=== PATIENT | female | born 1970 | race Caucasian/White ===

== ENCOUNTER 2019-07-11 23:26 | Emergency (ER) | payer OTHER ==
[~2019-07-11] VITALS: Ht 162.6 cm; Wt 72.6 kg
--- OUTSIDE RECORDS SUMMARY | 2019-07-11 23:28 | XMS REPORT | Continuity of Care Document ---
Author Author [facility] Organization [facility] Address Unknown Phone Unavailable Care Team Providers Care Senior Informatica Developer Name Role Phone MD LIZBETH WALLACE PCP Allergies, Adverse Reactions, Alerts Allergen Type Severity Reaction Last Updated Verified Status propoxyphene napsylate Allergy Unknown April 01, 2019 Yes Active Penicillin Allergy Unknown April 01, 2019 Yes Active Codeine Allergy Unknown April 01, 2019 Yes Active Cephalexin Allergy Unknown April 01, 2019 Yes Active Medications Medication Status Dose Units Route Sig Qty Days Start Date End Date Instructions Amitriptyline Hcl Active 100 mg Bedtime Aspirin Active 81 mg Daily Docusate Sodium Active 100 mg Twice A Day 14 April 01, 2019 8:10pm Estradiol Active 1 mg Daily Take 1 tablet by mouth once daily. Furosemide Active 20 mg Daily Glyburide Active 5 mg Twice A Day Take 1 tablet by mouth every day. Iron Active 5000 mg Levothyroxine Sodium Active 50 Daily Take 1 tablet by mouth once daily. Metformin Hcl Active 1000 mg Bid With Meals Take 1 tablet by mouth twice daily with meals. Methocarbamol Active 500 mg Three Times A Day as needed for Muscle Spasm January 04, 2018 5:25pm Metoprolol Tartrate Active 50 mg Ondansetron Hcl Active 8 mg Every 8 Hours as needed for Nausea 6 December 12, 2018 6:19pm Ramipril Active 5 mg Ranitidine Hcl Active 300 mg Daily Sitagliptin Phosphate Active 100 mg Daily Problems Active Problems Medical Problem Onset Date Status Dental abscess Active Shoulder pain Active Pharyngitis Active Chronic shoulder pain Active Hyperglycemia Active Torticollis, acute Active Acute flank pain Active Nausea alone Active Diarrhea Active Flatulence Active Cellulitis Active Paresthesia of right upper extremity Active Radiculopathy of arm Active Fall Active Contusion of knee, left Active Tinea corporis Active UTI (urinary tract infection) Active Left against medical advice Active Gassiness Active Abdominal pain Active Inactive/Resolved Problems Medical Problem Onset Date Status Bartholin gland cyst Resolved Acute upper respiratory infection of multiple sites Resolved Allergic rhinitis Resolved Encounter for medical screening examination Resolved Stuffy and runny nose Resolved Cough Resolved Sore throat Resolved Neck muscle spasm Resolved Neck pain Resolved Bronchitis Resolved Dental caries Resolved Neck pain Resolved Fat inflammation Resolved Neck pain on right side Resolved Muscle spasms of neck Resolved Constipation Resolved Chest pain of uncertain etiology Resolved Pancytopenia Resolved Abrasion of skin Resolved Contusion of rib on left side Resolved Hyperglycemia without ketosis Resolved Adynamic ileus Resolved Dental caries Resolved Toothache Resolved Folliculitis Resolved Viral gastroenteritis Resolved Dehydration Resolved Headache Resolved Pain, dental Resolved Anemia Resolved Diabetes Resolved Ureteritis Resolved Urinary tract infection Resolved Dehydration Resolved Procedures Procedure Date Performed Status X-ray of abdomen, single view April 01, 2019 completed Relevant Diagnostic Tests and/or Laboratory Data Laboratory Results Test Date/Time Result Interpretation Reference Range Result Comment Performing Site Urine Source April 01, 2019 6:15pm URINE [facility], [address] [place] [id number] Urine Color April 01, 2019 6:15pm Yellow Yel-Anailsa * [facility], [address] [place] [address] Urine Appearance April 01, 2019 6:15pm Clear Clear * [facility], [address] [place] [id number] Urine pH April 01, 2019 6:15pm 5.0 5.0-8.0 [facility], [address] [place] [address] Urine Specific [place] April 01, 2019 6:15pm 1.012 1.005-1.030 [facility], [address] [place] [address] Urine Protein April 01, 2019 6:15pm 10 mg/dL Negative * [facility], [address] [place] [id number] Urine Glucose (UA) April 01, 2019 6:15pm 30 mg/dL Negative * [facility], [address] [place] [address] Urine Ketones April 01, 2019 6:15pm Negative mg/dL Negative * [facility], [address] [place] [address] [facility] [place] [address] Urine Occult Blood April 01, 2019 6:15pm Negative Negative * [facility], [address] [place] [address] [facility] [place] [address] Urine Nitrite April 01, 2019 6:15pm Negative Negative [facility], [address] [place] [address] [place] [address] Urine Bilirubin April 01, 2019 6:15pm Negative mg/dL Negative [facility], [address] [place] [address] [place] [address] Urine Urobilinogen April 01, 2019 6:15pm Negative mg/dL 0.0-1.0 [facility], [address] [place] [address] [facility] [place] [address] Urine Leukocyte Esterase April 01, 2019 6:15pm Negative {Yu}/uL Negative [facility], [address] [place] [address] [place] [facility] [place] [address] Microscopic Urinalysis (T) April 01, 2019 6:15pm ----- [facility], [address] [place] [address] [place] [address] Urine RBC April 01, 2019 6:15pm None Seen /[HPF] 0-2 [facility], [address] [place] [address] [place] [facility] [place] [address] Urine WBC April 01, 2019 6:15pm 0-5 /[HPF] 0-5 [facility], [address] [place] [address] [place] [facility] [place] [address] Urine Epithelial Cells April 01, 2019 6:15pm Many /[HPF] Few [facility], [address] [place] [address] [place] [address] Urine Crystals April 01, 2019 6:15pm None Seen /[HPF] None * [facility], [address] [place] [address] [place] [address] Urine Bacteria April 01, 2019 6:15pm Frequent /[HPF] None [facility], [address] [place] [address] [place] [facility] [place] [address] Urine Casts April 01, 2019 6:15pm None Seen /[LPF] None * [facility], [address] [place] [address] [place] [facility] [place] [address] Urine Yeast April 01, 2019 6:15pm None Seen /[HPF] None [facility], [address] [place] [address] [place] [address] Urinalysis Comment April 01, 2019 6:15pm * * Ref Range=* Clinical evaluation required. [facility], [facility] [place] [address] Urine Culture Indicated April 01, 2019 6:15pm To follow [facility], [address] [place] [id number] Diagnostic Imaging Reports Report Dictated Date/Time Dictated By Status Abdomen X-Ray April 01, 2019 7:32pm JAZLYN CAGLE MD completed AP supine abdomen. - 04/01/2019, at 1928 hrs. INDICATION: Right-sided abdominal pain. COMPARISON: None available. FINDINGS: A non-specific bowel gas pattern is seen. I do not see evidence of obstruction or free air. No suspicious masses or calcifications are visualized. The osseous structures are unremarkable for age. Cholecystectomy clips are present in the right upper quadrant of the abdomen. IMPRESSION: No active disease. Dictated By: JAZLYN CAGLE MD Date Dictated: 04/01/191931 Signed by: JAZLYN CAGLE MD Date Signed: 04/01/191932 Health Concerns Health Concerns may be documented in an alternate section. Advance Directives Advance Directive Response Recorded Date/Time Does the Patient have an Advance Directive? No April 01, 2019 6:03pm Chief Complaint and Reason for Visit Chief Complaint Abdominal Pain Reason for Visit [id number] Encounters Encounter Location(s) Arrival/Admit Date Discharge/Depart Date Provider(s) Departed Emergency Room [facility] April 01, 2019 5:47pm April 01, 2019 8:12pm KWASI MOROCHO MD Recent Diagnosis Onset Date Abdominal pain Assessments Diagnosis Onset Date Resolution Status Abdominal pain Functional Status Observation Response Date Recorded Onset Within the Last 7 Days No Problem Identified April 01, 2019 6:03pm Goals Goals may be documented in an alternate section. Immunizations No Immunization Information Available Mental Status No Mental Status Information Available Medical Equipment No Medical Equipment Information available Insurance Providers Guarantor [facility] EdWilliam malina Address [address] [address] Contact Info. Home Phone: Payer Policy Id Coverage Id Subscriber's Name Subscriber Id Effective Date Expiration Date [employer] Amos Chris [id number] Emeli Palafox [id number] 2011 Plan of Treatment 1. The examination and treatment that you have received has been on an emergency basis only and is not intended as an effort to provide complete medical care. It is impossible to recognize and treat all elements of an illness or injury in a single ER visit. 2. Thank you for allowing us to provide emergent medical care to you or your family member. We consider it a privilege to have served you during your illness or injury. 3. If you have received a prescription, please fill it TODAY and follow the instructions carefully. 4. Return to the ER for worsening symptoms. 5. Follow up with your family doctor. Future Tests Future scheduled test information is unavailable Pending Tests Test Name Date ordered Urine Culture April 01, 2019 6:15pm Future Visits Future appointment information is unavailable Referrals to Other Providers Reason for Referral Referral Start Date Provider Provider Contact Information Provider Address LIZBETH WALLACE MD Work Phone: [address] [place] [address] Future Procedures Future procedure information is unavailable Future Medications Future medication information is unavailable Patient Instructions Severe Abdominal Pain, Adult (DC) Gas and Bloating Social History Smoking Status Status Date of Observation Ex-smoker (finding) April 01, 2019 6:03pm Observation Status Observation Response Date of Response Hx Tobacco Use No April 01, 2019 6:03pm Assigned Sex Female Vital Signs Vital Reading Result Reference Range Collection Date/Time Body Temperature 98.2 [degF] (97.6 - 99.5) April 01, 2019 8:22pm Heart Rate 85 /min (60 - 100) April 01, 2019 8:12pm Heart Rate 85 /min April 01, 2019 8:22pm Respiratory rate 16 /min (12 - 24) April 01, 2019 8:12pm Respiratory rate 16 /min April 01, 2019 8:22pm BP Systolic 116 mm[Hg] (100 - 140) April 01, 2019 8:12pm BP Systolic 116 mm[Hg] April 01, 2019 8:22pm BP Diastolic 76 mm[Hg] (60 - 90) April 01, 2019 8:12pm BP Diastolic 76 mm[Hg] April 01, 2019 8:22pm Weight 160 [lb_av] April 01, 2019 6:00pm BMI (Body Mass Index) 27.5 kg/m2 April 01, 2019 6:00pm
--- OUTSIDE RECORDS SUMMARY | 2019-07-11 23:28 | XMS REPORT ---
[facility] Address Unknown Phone Unavailable Care Team Providers Care Clinical Dental Technician Name Role Phone YASMANI GOMEZ Unavailable Unavailable Payers Payer Name Policy Type Policy Number Effective Date Expiration Date Problems This patient has no known problems. Allergies, Adverse Reactions, Alerts Allergy Name Allergy Type Status Severity Reaction(s) Onset Date Inactive Date Treating Clinician Comments Penicillins DA Active NV 2018-11-30 00:00:00 codeine DA Active NV 2018-11-30 00:00:00 cephalexin DA Active 2018-11-30 00:00:00 Penicillins DA Active NV 2018-02-10 00:00:00 codeine DA Active NV 2018-02-10 00:00:00 Medications This patient has no known medications. Results Test Description Test Time Test Comments Text Results Atomic Results Result Comments ALPHAFETOPROTEIN,S 2019-06-08 05:07:00 AFP, SERUM TUMOR MARKER (test code=ALPFETTM) 3.3 ng/mL 0.0-8.3 [facility] Electrochemiluminescence Immunoassay (ECLIA) . Values obtained with different assay methods or kits cannot be used interchangeably. Results cannot be interpreted as absolute evidence of the presence or absence of malignant disease. . This test is not interpretable in females. Performed at: - [address] [id number] [employer] Design Drafter: Rashaun Estrada MD, Phone: [phone] [id number] 20:15:00* Test Item Value Reference Range Comments SODIUM (test code=NA) 143 MMOL/L 137-145 K+ (test code=KSERUM) 2.7 MMOL/L 3.5-5.1 PLEASE NOTE NEW REFERENCE RANGE(S) IN EFFECT EFFECTIVE 12/20/2009 - 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 ([employer] 5600) CHLORIDE (test code=CL) 99 MMOL/L 98-107 CO2 (test code=CO2) 33 MMOL/L 22-30 BUN (test code=BUN) 8 MG/DL 7-17 CREA (test code=CREA) 0.8 MG/DL 0.7-1.2 GLUCOSE (test code=GLUCOSE) 247 MG/DL 70-99 Fasting glucose normal <100 MG/DL- [employer] recommendation CALCIUM (test code=CABLOOD) 9.0 MG/DL 8.4-10.2 TOTPROT (test code=TOTPROT) 7.6 G/DL 6.3-8.2 ALBUMIN (test code=ALBSERUM) 4.4 G/DL 3.5-5.0 BILITOT (test code=BILITOT) 0.9 MG/DL 0.2-1.3 AST (test code=AST) 52 U/L 15-46 PHOSALK (test code=PHOSALK) 142 U/L 38-126 ALT (test code=ALT) 37 U/L 13-69 GFR (test code=GFR) 81 mL/min/1.73m2 A GFR of >90 mL/min/1.73m2 is considered normal. RESULTS VERIFIED.C'd TO LCasie BROWN/20:10/[id number] 20:15:00* Test Item Value Reference Range Comments FERRITIN (test code=FERR) 147 NG/ML 11-264 IRON/ BINDING CAPACITY/ %[id number] 20:15:00* Test Item Value Reference Range Comments IRON % SATURATION (test code=%SAT) 27 % 20-45 IRON (test code=FE) 83 UG/DL 37-170 If Iron is <6 the % saturation is incalculable. IBC (test code=IBC) 305 265-497 VITAMIN [id number] 17:58:00* Test Item Value Reference Range Comments B12 (test code=B12) 498 pg/mL 239-931 [id number] 16:18:00* Test Item Value Reference Range Comments WBC (test code=WBC) 3.6 K/UL 3.5-10.9 RBC (test code=RBC) 4.25 M/UL 4.0-5.0 HGB (test code=HGB) 11.9 G/DL 11.5-15.5 HCT (test code=HCT) 37.9 % 34-46 MCV (test code=MCV) 89.2 FL 80-98 MCH (test code=MCH) 28.0 PG 28-32 MCHC (test code=MCHC) 31.4 G/DL 32.5-36.5 RDW (test code=RDW) 14.9 % 11.5-14.5 PLT (test code=PLT) 87 K/UL 150-450 MPV (test code=MPV) 10.4 FL 7.4-10.4 MANDIFF (test code=MANDIFF) NO SCAN (test code=SCAN) NO NEUT% (test code=NEUT%) 63.7 % 40-75 LYMPH% (test code=LYMPH%) 26.8 % 24-44 MONO% (test code=MONO%) 5.6 % 0-13 EOS% (test code=EOS%) 2.5 % 0-4 BASO % (test code=BASO%) 0.8 % 0-2 IG (test code=IG) 0 % 0-1 IG% (test code=IG%) 0.6 % 0-1 IG%=Metamyelocytes, Myelocytes, and Promyelocytes. (Immature neutrophils not including "bands".) > 3% IG indicates risk of sepsis NRBC% (test code=NRBC%) 0 /100 WBC ABS NEUT (test code=NEUT) 2.3 K/UL 1.2-7.2 RAPID STREP A [id number] 23:58:00* Test Item Value Reference Range Comments STREP A ANTIGEN (BEAKER) (test nacw=044) Negative Negative RAPID INFLUENZA A&B [id number] 22:48:00* Test Item Value Reference Range Comments RAPID INFLUENZA A AG (BEAKER) (test zqws=6486) Negative Negative, Inconclusive RAPID INFLUENZA B AG (BEAKER) (test yyss=8282) Negative Negative, Inconclusive RAD, CHEST, 1 VIEW, NON [id number] 19:38:00Reason for exam:->SORE THROATReason for exam:->COUGHIs the patient ?->NoShould this be performed at the bedside?->YesFINAL REPORT TECHNIQUE: Frontal view of the chest. INDICATION: SORE THROATCOUGH. COMPARISON: None. FINDINGS: LINES/TUBES: None. LUNGS: The lungs are well inflated and clear. No consolidation or pulmonary edema. PLEURA: No pneumothorax or significant pleural effusion. HEART AND MEDIASTINUM: The cardiomediastinal silhouette is within normal limits. SOFT TISSUES AND BONES: Surgical clips in the right upper quadrant. IMPRESSION: No acute cardiopulmonary abnormalities. Signed: Jack De La Garza MDReport Verified Date/Time: 05/04/2019 19:38:36 Reading Location: [address] Consult Reading Room OLOGY [id number] 17:47:00TISSUE CONSULTATION REPORTBAPTBAYLOR SCOTT & [facility] – DALLASDEPARTMENT OF PATHOLOGYP.O[address] [address] [facility] HOSPITALMELISSA FISCHER M.D.ROBERT L. HUTTON, M.D.CHARLES E. BURNS, M.D. Patient: SAMUEL BECK 1970 48 FRoom:Hosp#: [id number] Ordering Physician: Jose YORK Rec.: 04/25/2019Date of Proc.: 04/25/2019Lab No.: [id number] Clinical History:Pancytope niaFINAL ANATOMIC DIAGNOSIS:A. PERIPHERAL BLOOD: PANCYTOPENIAB. BONE MARROW, LEF T POSTERIOR HIP, ASPIRATE AND CORE BIOPSY:NORMOCELLULAR MARROW WITH TRILINEAGE H EMATOPOIESIS;RELATIVELY INCREASED EOSINOPHILS;NO EVIDENCE OF INFILTRATIVE MARROW PROCESS, LYMPHOMA ORLEUKEMIAMILDLY DECREASED IRON (see comment)REPORT COMMENTS: Flow cytometry analysis of this bone marrow aspirate, performed at[facility], is n egative for any evidence of lymphoma or leukemia. Theetiology of this patient's pancytopenia is unclear from this marrowexamination. Diagnostic considerations would include bone marrowsuppression by viral/bacterial infection, medications or toxins.The cellularity of the marrow would suggest patient is recoveringfrom whatever insult was present. Correlation is clinical andcytogenetic findings is required.MICROSCOPIC EXAMINATION:The CBC and peripheral blood indices performed [facility] 04/25/2019 demonstrates pancytopenia. The patient has a lowwhite blood cell count of 2.2 K/uL. The patient is anemic withhemoglobin of 9.4 g/dL and hematocrit of 29.6%. The patient has anormal range MCV of 87.6 fl and a minimally decreased MCH of 27.8pg. The patient has a low platelet count o f 73,000. Examination ofthe peripheral smear confirms the automated CBC finding s. There aresome immature and reactive appearing lymphocytes in the peripheralb lood. No blasts or nucleated red cells are seen on scan. The redcell morphology is unremarkable. The aspirate smears are hemodiluteand devoid of spicules. The aspirate clot preparation contains onlyrare spicules. The core biopsy shows go od marrow sampling. Themarrow has an estimated cellularity of 40-50%, which is normal forthe patient's age. Megakaryocytes appear increased. Based on thecore biopsy, there is a relative erythroid hyperplasia. Eosinophilsappear relatively increased. I do not appreciate any marrowfibrosis or infiltrative marrow proc ess. No atypical lymphoidaggregates are present. Iron stores appear mildly dec reased inPerl's stain preparations of the aspirate clot. John stainedpreparatio ns of the core biopsy fail to demonstrate any significantiron staining and the P erl stain preparation of the aspirate smearis noncontributory due to the absence of spicules.GROSS APPEARANCE:A. The specimen labeled "clot." The 2.5 x 1.3 x 0 .8 cm fragment ofdark red clot is sectioned and submitted entirely in cassettes A1and A2.B. The specimen labeled "core." The 1.6 cm length of dark red andtan c ylindrical core has a consistent diameter of 2 mm. Submitteduncut as B for yelitza potter decalcification.PATHOLOGIST: Stanley Sparks Electronically Signed: ALPHAFETOPROTEIN,[id number] 05:07:00* Test Item Value Reference Range Comments AFP, SERUM TUMOR MARKER (test code=ALPFETTM) 3.3 ng/mL 0.0-8.3 [facility] Electrochemiluminescence Immunoassay (ECLIA) . Values obtained with different assay methods or kits cannot be used interchangeably. Results cannot be interpreted as absolute evidence of the presence or absence of malignant disease. . This test is not interpretable in females. Performed at: [facility] [address] [id number] [employer] Drafter: Rashaun Estrada MD, Phone: [phone] IRON/ BINDING CAPACITY/ %[id number] 12:42:00* Test Item Value Reference Range Comments IRON % SATURATION (test code=%SAT) 18 % 20-45 IRON (test code=FE) 58 UG/DL 37-170 If Iron is <6 the % saturation is incalculable. IBC (test code=IBC) 314 486-497 [id number] 12:42:00* Test Item Value Reference Range Comments FERRITIN (test code=FERR) 109 NG/ML 11-264 [id number] 12:42:00* Test Item Value Reference Range Comments SODIUM (test code=NA) 140 MMOL/L 137-145 K+ (test code=KSERUM) 3.5 MMOL/L 3.5-5.1 PLEASE NOTE NEW REFERENCE RANGE(S) IN EFFECT EFFECTIVE 12/20/2009 - 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 ([employer] 5600) CHLORIDE (test code=CL) 103 MMOL/L 98-107 CO2 (test code=CO2) 28 MMOL/L 22-30 BUN (test code=BUN) 12 MG/DL 7-17 CREA (test code=CREA) 0.8 MG/DL 0.7-1.2 GLUCOSE (test code=GLUCOSE) 130 MG/DL 70-99 Fasting glucose normal <100 MG/DL- [employer] recommendation CALCIUM (test code=CABLOOD) 9.2 MG/DL 8.4-10.2 TOTPROT (test code=TOTPROT) 7.4 G/DL 6.3-8.2 ALBUMIN (test code=ALBSERUM) 4.0 G/DL 3.5-5.0 BILITOT (test code=BILITOT) 0.4 MG/DL 0.2-1.3 AST (test code=AST) 32 U/L 15-46 PHOSALK (test code=PHOSALK) 139 U/L 38-126 ALT (test code=ALT) 27 U/L 13-69 GFR (test code=GFR) 81 mL/min/1.73m2 A GFR of >90 mL/min/1.73m2 is considered normal. VITAMIN [id number] 12:26:00* Test Item Value Reference Range Comments B12 (test code=B12) 429 pg/mL 239-931 [id number] 11:08:00* Test Item Value Reference Range Comments WBC (test code=WBC) 2.2 K/UL 3.5-10.9 RBC (test code=RBC) 3.38 M/UL 4.0-5.0 HGB (test code=HGB) 9.4 G/DL 11.5-15.5 HCT (test code=HCT) 29.6 % 34-46 MCV (test code=MCV) 87.6 FL 80-98 MCH (test code=MCH) 27.8 PG 28-32 MCHC (test code=MCHC) 31.8 G/DL 32.5-36.5 RDW (test code=RDW) 14.8 % 11.5-14.5 PLT (test code=PLT) 73 K/UL 150-450 MPV (test code=MPV) 11.2 FL 7.4-10.4 MANDIFF (test code=MANDIFF) NO SCAN (test code=SCAN) NO NEUT% (test code=NEUT%) 56.5 % 40-75 LYMPH% (test code=LYMPH%) 32.0 % 24-44 MONO% (test code=MONO%) 7.8 % 0-13 EOS% (test code=EOS%) 2.7 % 0-4 BASO % (test code=BASO%) 0.5 % 0-2 IG (test code=IG) 0 % 0-1 IG% (test code=IG%) 0.5 % 0-1 IG%=Metamyelocytes, Myelocytes, and Promyelocytes. (Immature neutrophils not including "bands".) > 3% IG indicates risk of sepsis NRBC% (test code=NRBC%) 0 /100 WBC ABS NEUT (test code=NEUT) 1.2 K/UL 1.2-7.2 IRON/ BINDING CAPACITY/ %[id number] 14:15:00* Test Item Value Reference Range Comments IRON % SATURATION (test code=%SAT) 15 % 20-45 IRON (test code=FE) 57 UG/DL 37-170 If Iron is <6 the % saturation is incalculable. IBC (test code=IBC) 391 059-711 [id number] 14:15:00* Test Item Value Reference Range Comments SODIUM (test code=NA) 141 MMOL/L 137-145 K+ (test code=KSERUM) 3.7 MMOL/L 3.5-5.1 PLEASE NOTE NEW REFERENCE RANGE(S) IN EFFECT EFFECTIVE 12/20/2009 - 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 ([employer] 5600) CHLORIDE (test code=CL) 101 MMOL/L 98-107 CO2 (test code=CO2) 27 MMOL/L 22-30 BUN (test code=BUN) 12 MG/DL 7-17 CREA (test code=CREA) 0.8 MG/DL 0.7-1.2 GLUCOSE (test code=GLUCOSE) 146 MG/DL 70-99 Fasting glucose normal <100 MG/DL- [employer] recommendation CALCIUM (test code=CABLOOD) 10.0 MG/DL 8.4-10.2 TOTPROT (test code=TOTPROT) 8.0 G/DL 6.3-8.2 ALBUMIN (test code=ALBSERUM) 4.5 G/DL 3.5-5.0 BILITOT (test code=BILITOT) 0.6 MG/DL 0.2-1.3 AST (test code=AST) 30 U/L 15-46 PHOSALK (test code=PHOSALK) 134 U/L 38-126 ALT (test code=ALT) 17 U/L 13-69 GFR (test code=GFR) 81 mL/min/1.73m2 A GFR of >90 mL/min/1.73m2 is considered normal. [id number] 14:15:00* Test Item Value Reference Range Comments FERRITIN (test code=FERR) 23 NG/ML 11-264 VITAMIN [id number] 14:14:00* Test Item Value Reference Range Comments B12 (test code=B12) 498 pg/mL 239-931 [id number] 13:21:00* Test Item Value Reference Range Comments WBC (test code=WBC) 2.2 K/UL 3.5-10.9 RBC (test code=RBC) 3.62 M/UL 4.0-5.0 HGB (test code=HGB) 9.9 G/DL 11.5-15.5 HCT (test code=HCT) 31.8 % 34-46 MCV (test code=MCV) 87.8 FL 80-98 MCH (test code=MCH) 27.3 PG 28-32 MCHC (test code=MCHC) 31.1 G/DL 32.5-36.5 RDW (test code=RDW) 14.5 % 11.5-14.5 PLT (test code=PLT) 79 K/UL 150-450 MPV (test code=MPV) 10.6 FL 7.4-10.4 MANDIFF (test code=MANDIFF) NO SCAN (test code=SCAN) NO NEUT% (test code=NEUT%) 56.6 % 40-75 LYMPH% (test code=LYMPH%) 34.4 % 24-44 MONO% (test code=MONO%) 5.4 % 0-13 EOS% (test code=EOS%) 2.7 % 0-4 BASO % (test code=BASO%) 0.9 % 0-2 IG (test code=IG) 0 % 0-1 IG% (test code=IG%) 0.0 % 0-1 IG%=Metamyelocytes, Myelocytes, and Promyelocytes. (Immature neutrophils not including "bands".) > 3% IG indicates risk of sepsis NRBC% (test code=NRBC%) 0 /100 WBC ABS NEUT (test code=NEUT) 1.3 K/UL 1.2-7.2 I-STAT [id number] 13:35:00* Test Item Value Reference Range Comments ISTCREA (test code=ISTCREA) 0.8 MG/DL 0.7-1.5 CT ABD W/CONT PER [id number] 11:28:[address]AGNOST[address] IMAGING REPORTPatient Name: EMELI BECK LDate of Service: [id number]: 48 Sex: F Order #: [id number] Room: OPEDOB: 1970 X-Ray Number: [id number] Record Number: [id number] Hospital Number: [id number] Physician: MARIA L YORKHIROrdering Physician: MILIND YORK abdomen.History: Abdomen pain.Technique: IV and oral contrast enhanced CT axial images of the abdomenwith sagittal and coronal reformatted images were reviewed.Contrast administered for this study per protocol; oral Gastrografin-jpzfi415 mL water with 15 mL Gastrografin and IV Isovue 300-[address] exam was performed using one or more of the following dosereduction techniques: Automated exposure control, adjustment of the MAand/or KV according to patient size or use of iterative reconstructionteeast [facility] regional hospitalique.Comparison: None.Findings:Images of the lower lungs and mediastinum demon strate no specific defects.There is hepatosplenomegaly present with mild fatty i nfiltration of theliver. The liver may be cirrhotic. The spleen measures greater than 15 cm.The other solid large organs of the upper abdomen appear focally nor mal.The gallbladder surgically absent.There is no significant retroperitoneal ad enopathy or fluid collectionsdepicted.The visualized bowel loops appear focally normal..Impression:Hepatosplenomegaly with fatty infiltration of liver. Possible cirrhosis.Correlate clinically.Electronically Signed By: Jocelyn Aguilar, 02/28/2019 11:26 AMLegally authenticated by MANDY Potter 2019-02-28 11:2 6:14US LIMITED ABD [id number] 07:57:00[place] [id number] IMAGING REPORTPatient Name: EMELI BECK LDate of Service: [id number]: 48 Sex: F Order #: [id number] Room: OPEDOB: 1970 X-Ray Number: [id number] Record Number: [id number] Hospital Number: [id number] Physician: Brenda YORK Physician: HAMLET YORK ABD ULTRASOUND 02/28/2019 7:29 AMHistory: splenomegalyComparisons: None Available.The LEFT upper quadrant was imaged.FINDINGS:The spleen is enlarged and measures 17.0 x 6.9 x 4.5 cm.There is no free fluid in the LEFT upper quadrant or abnormal fluidcollection identified.Evaluation of the pancreas, aorta and IVC is limited due to bowel gas.The LEFT kidney is sonographically unremarkable.IMPRESSION:Splenomegaly.E lectronically Signed By: Channing Ortega M.D., 02/28/2019 7:54 AMLegally authent icated by RADHA BENITEZ 2019-02-28 07:54:52TOMOSYNTHESIS + SCREEN [id number] 11:25:[address] [id number] IMAGING REPORTPatient Name: EMELI BECK LDate of Service: [id number]: 48 Sex: F Order #: [id number] Room: OOSDOB: 1970 X-Ray Number: [id number] Record Number: [id number] Hospital Number: [id number] Physician: Brenda YORK Physician: MOISES YORK SCREENING MAMMOGRAM WITH TOMOSYNTHESIS:HISTORY: Screening mammogram.COMPARISON: July 24, 2017.TECHNIQUE: Standard CC and MLO views of each breast were performed.Tomosynthesis images were also reviewed.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 There are a fewbenign-appearing calcifications present within each breast. There are nomammographic abnormalities to suggest malignancy bilat erally.IMPRESSION:BI-RADS 2: Benign findings.Recommendation: 12 month follow-up, or age appropriate screening interval.PLEASE NOTE:1. In up to 10% of patients, cancers are not visible on mammography.2. If a suspicious lump is palpated, biopsy should not be deferredbecause of a negative mammogram.MAMMOGRAPHY AT [facility] IS ACCREDITED BY THEFORMERLY [facility] COLLEGE OF RADIOLOG YElectronically Signed By: Ronnie Pang M.D., 02/22/2019 11:23 [facility] authenticated by MANDY Potter 2019-02-22 11:23:21OCCULT BLOOD, FECES 2019-02-21 14:10:00* Test Item Value Reference Range Comments OCCULT BLOOD FECES (test code=OCCBLFEC) NEGATIVE NEGATIVE LOT# CRD (test code=LOT# CRD) 66089 EXP CRD (test code=EXP CRD) 0222 LOT# DVL (test code=LOT# DVL) 48140 EXP DVL (test code=EXP DVL) 517368 INT QC (test code=INT QC) PASSED CELIAC DISEASE [id number] 11:06:00* Test Item Value Reference Range Comments CELIAC (test code=CELIAC) NEGATIVE TESTING [place] [address] (RESULTS AVAILABLE UNDER SEPARATE COVER) ZINC [id number] 11:05:00* Test Item Value Reference Range Comments ZPPHEME (test code=ZPPHEME) 85 ug/dL 0-36 BIOLOGICAL EXPOSURE INDEX: <100 (1 MONTH EXPOSURE) ENVIRONMENTAL EXPOSURE: 0-36 TESTING PERFORMED AT [place] [address] [address] [address]BHIQALCDCVZDS ACID, [id number] 16:09:00* Test Item Value Reference Range Comments METHYLMALONIC ACID, SERUM (test code=MMAS) 997 nmol/L 0-378 COMMENT (test code=COMMENT) Comment . This test was developed and its performance characteristics determined by [facility]. It has not been cleared or approved by the Food and Drug Administration. Performed at: [address] [id number] [employer] Design Drafter: Jeffery Clark MD, Phone: [phone] HEMOGLOBIN [id number] 15:09:00* Test Item Value Reference Range Comments HEMOGLOBIN A (test code=HGBA) 98.3 % 96.4-98.8 HEMOGLOBIN S (test code=HGBS) 0.0 % >0.0 HEMOGLOBIN C (test code=HGBC) 0.0 % >0.0 HEMOGLOBIN A2 (test code=HGBA2) 1.7 % 1.8-3.2 HEMOGLOBIN F (test code=HGBF) 0.0 % 0.0-2.0 HEMOGLOBIN VARIANT (test code=HGBVAR) 0.0 % >0.0 INTERPRE (test code=INTERPRE) Note: Normal adult hemoglobin present. Low Hgb A2 may indicate an alpha-thalassemia or iron deficiency. Suggest clinical and hematologic correlation. Performed at: [address], [place] [id number] [employer] Drafter: JOSIE Hooks MD, Phone: [phone] FREE K AND L LIGHT CHAIN [id number] 12:35:00* Test Item Value Reference Range Comments FREE KAPPA LT CHAIN (test code=FRKLTCH) 52.6 mg/l 3.3-19.4 FREE LAMBDA LT CHAINS (test code=FRLLTCH) 37.6 mg/l 5.7-26.3 KAPPA/LAMBDA RATIO (test code=K/L RATI) 1.40 0.26-1.65 TESTING PERFORMED AT [address] [address]LCPGBVXJCAP, QUANT 2019-02-16 08:12:00* Test Item Value Reference Range Comments HAPTO (test code=HAPTO) 119 mg/dL 34-200 Performed at: [address] [id number] [employer] Drafter: Jeffery Clark MD, Phone: [phone] ANTI-NUCLEAR AB, [id number] 14:10:00* Test Item Value Reference Range Comments ANTINUCLEAR AB, IFA (test code=ANAIFA) Negative Negative <1:80 Borderline 1:80 Positive >1:80 Performed at: [facility] [address] [id number] [employer] Drafter: Rashaun Estrada MD, Phone: [phone] HOMOCYSTEINE, [id number] 13:09:00* Test Item Value Reference Range Comments HOMOCYSTEINE, PLASMA (test code=HOMO-S) 16.8 umol/L 0.0-15.0 Performed at: [facility] [address] [id number] [employer] Drafter: Rashaun Estrada MD, Phone: [phone] ER SCREEN FOR HIV 16:22:00* Test Item Value Reference Range Comments HIV 1/2 AB (test code=SCRN HIV) NEGATIVE NEGATIVE This test is used for SCREENING purposes only. All reactive results are prelimenary and confirmation results will follow. HEPATITIS C ANTIBODY [id number] 16:22:00* Test Item Value Reference Range Comments SCRN HCV (test code=SCRN HCV) NEGATIVE NEGATIVE Hepatitis C Antibody test is for screening purposes only. All reactives will be confirmed by additional testing. [id number] 14:33:00* Test Item Value Reference Range Comments TRANSFERRIN (test code=TRANSFER) 308 MG/DL 206-381 VITAMIN [id number] 14:33:00* Test Item Value Reference Range Comments B12 (test code=B12) 238 pg/mL 239-931 [id number] 14:33:00* Test Item Value Reference Range Comments FOLATE (test code=FOLATE) 5.5 ng/mL 2.76-20.0 HEPATITIS B SURF [id number] 14:33:00* Test Item Value Reference Range Comments HEPBSAG (test code=HEPBSAG) NEGATIVE NEGATIVE Hepatitis B Surface Antigen is for screening purpose only. All reactives will be sent to reference lab for confirmation. VITAMIN D [id number] 13:45:00* Test Item Value Reference Range Comments VITAMIN D, 25-HYDROXY (test code=VITD,25) 42.8 Vitamin D guideline has been defined by the [place] [employer] and [employer] practice as followed: Deficient: less than 20 ng/mL Insufficient: 21-29 ng/mL Sufficient: 30-100 ng/mL Potential Toxicity: >100ng/mL IRON/ BINDING CAPACITY/ [id number] 13:45:00* Test Item Value Reference Range Comments IRON % SATURATION (test code=%SAT) 14 % 20-45 IRON (test code=FE) 56 UG/DL 37-170 If Iron is <6 the % saturation is incalculable. IBC (test code=IBC) 395 265-497 [id number] 13:45:00* Test Item Value Reference Range Comments FERRITIN (test code=FERR) 21 NG/ML 11-264 [id number] 13:44:00* Test Item Value Reference Range Comments LDH (test code=LDH) 314 U/L 313-618 BILIRUBIN, [id number] 13:44:00* Test Item Value Reference Range Comments BILITOT (test code=BILITOT) 0.7 MG/DL 0.2-1.3 THYROID STIMULATION [id number] 13:44:00* Test Item Value Reference Range Comments TSH (test code=TSH) 4.60 UIU/ML 0.465-4.68 FREE [id number] 13:44:00* Test Item Value Reference Range Comments FT4 (test code=FT4) 1.17 ng/dL 0.78-2.19 DIRECT [id number] 13:26:00* Test Item Value Reference Range Comments IGG (test code=ANTI-IGG) NEGATIVE NEGATIVE IGG-C3D (test code=IGG-C3D) NEGATIVE NEGATIVE RETIC [id number] 11:55:00* Test Item Value Reference Range Comments RETIC (test code=RETIRE) 3.1 % 0.3-1.9 IRF (test code=IRF) 11.0 % 3-15.9 RETHE (test code=RETHE) 27.6 pg 28.2-36.6 UA RFLX MICR CULT IF [id number] 09:15:00* Test Item Value Reference Range Comments UA COLOR (test code=COLU) Yellow Yellow UA APPEARANCE (test code=APPU) Turbid Clear UA GLUCOSE DIPSTICK (test code=DGLUU) Negative Negative UA BILIRUBIN DIPSTICK (test code=BILU) Negative Negative UA KETONE DIPSTICK (test code=KETU) Negative mg/dL Negative UA SPECIFIC GRAVITY (test code=SGU) 1.014 <1.030 UA BLOOD DIPSTICK (test code=SHAHEED) 1+ Negative UA PH DIPSTICK (test code=DAVE) 5.0 5.0-8.0 UA PROTEIN DIPSTICK (test code=PROU) 100 (2+) mg/dL Negative UA UROBILINOGEN DIPSTICK (test code=URO) Negative mg/dL Negative UA NITRITE DIPSTICK (test code=HERNANDEZ) Positive Negative UA LEUKOCYTE ESTERASE DIPSTICK (test code=LEUU) 2+ Negative UA WBC (test code=WBCUR) >100 /HPF <4-5 >10 WBC/HPF=PYURIA PRESENT URINE CULTURE PROCESSED UA RBC (test code=RBCU) 11-20 /HPF <4-5 UA BACTERIA (test code=BACU) None /HPF None-Rare UA SQUAMOUS CELLS (test code=SQU) 0-5 (RARE) /HPF 0-5 (RARE) SOURCE OF URINE: VOIDEDIndication for culture: Suprapubic PainCT HEAD W/O [id number] 16:24:[address] [id number] IMAGING REPORTPatient Name: EMELI BECK LDate of Service: [id number]: 48 Sex: F Order #: [id number] [facility] 1970 [facility] Number: [id number] Record Number: [id number] Hospital Number: [id number] Physician: SAMANTHA VERGARA Physician: AFSHAN LOONEY scan of the brain done without contrastThis patient presents with drooping of his right eye.The ventricles are normal in size and position. There are no findings tosuggest either an intracerebral hemorrhage or ischemic infarction. Thereis no mass effect or shift of the midline structures.The posterior fossa structures, sella region, orbits and visualizedparanasal sinuses are normal.IMPRESSIONNormal CT scan of the brain done without contrast..Electronically Signed By: Gaurav Lentz M.D., 11/19/2018 4:22 PMLegally authenticated by GWEN CARLSON 2018-11-19 16:22:27 WHOLE BLOOD [id number] 19:55:00* Test Item Value Reference Range Comments WHOLE BLOOD GLUCOSE (test code=POC GLU) 159 MG/DL 70-99 Fasting glucose normal <100 MG/DL- [employer] recommendation [id number] 19:52:00* Test Item Value Reference Range Comments GLUCOSE (test code=URGLU) NEGATIVE MG/DL NEG-100 BILIRUBN (test code=URBILI) NEGATIVE NEGATIVE KETONE (test code=URKET) NEGATIVE MG/DL NEGATIVE BLOOD (test code=URBLD) TRACE UR PH (test code=URPH) 5.0 5.0-7.5 PROTEIN (test code=URPRO) TRACE MG/DL NEGATIVE NITRITES (test code=URNIT) NEGATIVE NEGATIVE UROBILINGEN (test code=URURO) 0.2 EU/DL 0.2-1.0 LEUKOCYT (test code=URLEU) SMALL NEGATIVE UA COLOR (test code=UA COLOR) YELLOW YELLOW CLARITY (test code=CLARITY) CLEAR CLEAR SP GRAV (test code=URSPGRAV) 1.003 1.000-1.025 UAMICRO (test code=UAMICRO) YES WBC (test code=URWBC) 14 /HPF 0-5 RBC (test code=URRBC) 1 /HPF 0-2 CASTS (test code=CAST) 1 /LPF 0-3 UR EPI (test code=EPI) 71 /LPF BACTERIA (test code=BACTERIA) SMALL NONE [id number] 17:31:00* Test Item Value Reference Range Comments SODIUM (test code=NA) 137 MMOL/L 137-145 K+ (test code=KSERUM) 3.2 MMOL/L 3.5-5.1 PLEASE NOTE NEW REFERENCE RANGE(S) IN EFFECT EFFECTIVE 12/20/2009 - 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 ([employer] 5600) CHLORIDE (test code=CL) 100 MMOL/L 98-107 CO2 (test code=CO2) 19 MMOL/L 22-30 BUN (test code=BUN) 24 MG/DL 7-17 CREA (test code=CREA) 1.2 MG/DL 0.7-1.2 GLUCOSE (test code=GLUCOSE) 250 MG/DL 70-99 Fasting glucose normal <100 MG/DL- [employer] recommendation CALCIUM (test code=CABLOOD) 9.2 MG/DL 8.4-10.2 TOTPROT (test code=TOTPROT) 8.0 G/DL 6.3-8.2 ALBUMIN (test code=ALBSERUM) 4.5 G/DL 3.5-5.0 BILITOT (test code=BILITOT) 0.9 MG/DL 0.2-1.3 AST (test code=AST) 29 U/L 15-46 PHOSALK (test code=PHOSALK) 172 U/L 38-126 ALT (test code=ALT) 16 U/L 13-69 GFR (test code=GFR) 51 mL/min/1.73m2 A GFR of >90 mL/min/1.73m2 is considered normal. [id number] 17:31:00* Test Item Value Reference Range Comments LIPASE (test code=LIPA) 264 U/L 23-300 [id number] 17:03:00* Test Item Value Reference Range Comments WBC (test code=WBC) 5.0 K/UL 3.5-10.9 RBC (test code=RBC) 4.03 M/UL 4.0-5.0 HGB (test code=HGB) 11.0 G/DL 11.5-15.5 HCT (test code=HCT) 32.4 % 34-46 MCV (test code=MCV) 80.4 FL 80-98 MCH (test code=MCH) 27.3 PG 28-32 MCHC (test code=MCHC) 34.0 G/DL 32.5-36.5 RDW (test code=RDW) 15.5 % 11.5-14.5 PLT (test code=PLT) 106 K/UL 150-450 MPV (test code=MPV) 10.8 FL 7.4-10.4 MANDIFF (test code=MANDIFF) NO SCAN (test code=SCAN) NO NEUT% (test code=NEUT%) 66.2 % 40-75 LYMPH% (test code=LYMPH%) 20.1 % 24-44 MONO% (test code=MONO%) 12.3 % 0-13 EOS% (test code=EOS%) 0.4 % 0-4 BASO % (test code=BASO%) 0.8 % 0-2 IG (test code=IG) 0 % 0-1 IG% (test code=IG%) 0.2 % 0-1 IG%=Metamyelocytes, Myelocytes, and Promyelocytes. (Immature neutrophils not including "bands".) > 3% IG indicates risk of sepsis NRBC% (test code=NRBC%) 0 /100 WBC ABS NEUT (test code=NEUT) 3.3 K/UL 1.2-7.2 ABDOMEN 1 [id number] 16:42:[address] [id number] IMAGING REPORTPatient Name: EMELI BECK LDate of Service: [id number]: 48 Sex: F Order #: [id number] Room: ERDOB: 1970 X-Ray Number: [id number] Record Number: [id number] Hospital Number: [id number] Physician: Frankie MCDONOUGH Physician: SCOTT SANDS 1 VIEW, 10/11/2018 4:32 PM:History: Nausea / Vomiting. . Abdominal pain with nausea and vomiting.Comparison: None.Technique: 1 view abdomenFindings:The bowel gas pattern is nonobstructive. There is no evidence of freeintra-abdominal air. There is no evidence of organomegaly or abnormalintra-abdominal calcifications. The gallbladder is surgically absent.Impression:Nonobstructive bowel gas pattern without evidence of free air.Electronically Signed By: Mark Elena M.D., 10/11/2018 4:40 PMLegally authenticated by VIOLETTE GARCIA 2018-10-11 16:40:02URINALYSIS 2018-10-11 16:26:00* Test Item Value Reference Range Comments GLUCOSE (test code=URGLU) NEGATIVE MG/DL NEG-100 BILIRUBN (test code=URBILI) NEGATIVE NEGATIVE KETONE (test code=URKET) TRACE MG/DL NEGATIVE BLOOD (test code=URBLD) NEGATIVE UR PH (test code=URPH) 5.0 5.0-7.5 PROTEIN (test code=URPRO) 30 MG/DL NEGATIVE NITRITES (test code=URNIT) NEGATIVE NEGATIVE UROBILINGEN (test code=URURO) 0.2 EU/DL 0.2-1.0 LEUKOCYT (test code=URLEU) TRACE NEGATIVE UA COLOR (test code=UA COLOR) DARK YELLOW YELLOW CLARITY (test code=CLARITY) CLOUDY CLEAR SP GRAV (test code=URSPGRAV) 1.016 1.000-1.025 UAMICRO (test code=UAMICRO) YES WBC (test code=URWBC) 4 /HPF 0-5 RBC (test code=URRBC) 7 /HPF 0-2 CASTS (test code=CAST) 16 /LPF 0-3 UR EPI (test code=EPI) 108 /LPF BACTERIA (test code=BACTERIA) TRACE NONE
[2019-07-12] MEDS ORDERED: HYDROCODONE/APAP 7.5MG-325MG 1 EA TAB PO ONE
--- NOTE | 2019-07-12 00:28 | Diagnostic Imaging Report ---
EXAMINATION: PA and lateral views of the chest, left rib series. COMPARISON: None CLINICAL HISTORY: Fall, left rib pain DISCUSSION: The lungs are well inflated. No focal airspace consolidation, pleural effusion, or pneumothorax. Cardiomediastinal contour and pulmonary vasculature are within normal limits. There is an acute, mildly displaced fracture of the lateral aspect of the left eighth rib and a suspected nondisplaced fracture of the lateral left ninth rib.. IMPRESSION: Acute, minimally displaced fractures of the left lateral eighth and probably ninth ribs. No pneumothorax. Signed by: Dr. Chandler Vasquez M.D. on 07/12/2019 12:26 AM
--- NOTE | 2019-07-12 00:47 | NUR ---
RT called for Incentive spirometer
[2019-07-12 00:56] VITALS: BP 113/68
== END 2019-07-12 01:02 | disposition home or self-care (01) ==
LOC: ER 23:26
DX: S22.42XA Multiple fractures of ribs, left side, initial encounter for closed fracture (principal); S20.212A Contusion of left front wall of thorax, initial encounter; W10.8XXA Fall (on) (from) other stairs and steps, initial encounter; Y93.01 Activity, walking, marching and hiking; Y92.008 Other place in unspecified non-institutional (private) residence as the place of occurrence of the external cause; I10 Essential (primary) hypertension; E11.9 Type 2 diabetes mellitus without complications; E78.5 Hyperlipidemia, unspecified; F41.9 Anxiety disorder, unspecified
CPT/HCPCS: 71101; 99283